=== PATIENT | female | born 1955 | race Caucasian/White ===

== ENCOUNTER 2016-11-08 06:33 | Inpatient (IN) | payer BC ==
[~2016-11-08] VITALS: Ht 165.1 cm; Wt 134.5 kg
[~2016-11-08 06:33] MED LIST: AMIODARONE HCL200 MG PO; CARDIZEM CD,CA240 MG PO; CELECOXIB200 MG PO; COUMADIN5 MG PO; COUMADIN7.5 MG PO; CYANOCOBAL1000 MCG/2 IM; DILTIAZEM 24HR300 MG PO; FLUOXETINE HCL40 MG PO; FUROSEMIDE20 MG PO; GLUCOSAMINE-CH1 EA32 PO; LASIX20 MG PO; LO-DOSE ASPIRIN81 M2 PO; LOPRESSOR50 MG PO; LOVENOX60 MG/0.6 SC; MORPHINE SULFAT15 M1 PO; NYSTATIN15 GM TP; OXYCODONE HCL5 MG PO; PHENTERMINE H37.5 MG PO; PROZAC20 MG PO; SYNTHROID50 MCG PO; TYLENOL EXTRA500 MG PO; WELLBUTRIN XL300 MG PO; XARELTO20 MG PO
[2016-11-08 07:04] VITALS: BP 124/62
[2016-11-08 08:02] LABS: POINT-OF-CARE METER ID UU14174212
[2016-11-08 08:51] LABS: METH RESISTANT S AUREUS PCR NEGATIVE (NEGATIVE)
[2016-11-08 08:58] LABS: PROBE CHECK PASS; SPECIMEN PROCESSING CONTROL PASS
[2016-11-08 12:00] VITALS: BP 130/78
[2016-11-08 16:19] VITALS: BP 129/67
[2016-11-08 19:10] VITALS: BP 131/78
[2016-11-09 02:44] VITALS: BP 121/74
[2016-11-09 06:40] LABS: MCH 31.1 PG (29.0-34.0); MCHC 32.8 G/DL (30.0-36.0); PLATELET COUNT 211 K/uL (156-360); RBC DIS.WIDTH-CV 14.1 % (11.8-14.6); RBC DIS.WIDTH-SD 45.8 % (39-53); RED BLOOD COUNT 3.79 M/uL (3.80-5.20); WHITE BLOOD COUNT 7.2 K/uL (4.1-10.2)
[2016-11-09 07:37] LABS: ANION GAP 7 MEQ/L (2-14); CHLORIDE 102 MEQ/L (99-109); GFR ESTIMATE (CALCULATED) 54 mL/min/; GLUCOSE 110 mg/dL (70-99); MAGNESIUM 1.9 mg/dl (1.3-2.7); POTASSIUM 4.4 MEQ/L (3.7-5.4); SAMPLE HEMOLYSIS CHECK 0; SAMPLE ICTERIC CHECK 0; SAMPLE LIPEMIA CHECK 0; SODIUM 140 MEQ/L (136-147); UREA NITROGEN (BUN) 10 mg/dL (9-23)
[2016-11-09 08:32] VITALS: BP 123/75
[2016-11-09] MEDS ORDERED: HYDROCODON-ACE1 EAC7 PO (08:34)
[2016-11-09 19:20] VITALS: BP 136/60
[2016-11-10 00:15] VITALS: BP 150/60
[2016-11-10 03:00] VITALS: BP 151/83
[2016-11-10 07:05] VITALS: BP 122/77
[2016-11-10 07:50] LABS: HEMATOCRIT 34.4 % (36.0-46.0); MCH 30.2 PG (29.0-34.0); MCHC 31.7 G/DL (30.0-36.0); MCV 95.3 FL (83-99); MEAN PLAT.VOLUME 10.6 uM^3 (9.5-12.4); PLATELET COUNT 188 K/uL (156-360); RBC DIS.WIDTH-CV 14.3 % (11.8-14.6); RBC DIS.WIDTH-SD 49.7 % (39-53); RED BLOOD COUNT 3.61 M/uL (3.80-5.20); WHITE BLOOD COUNT 7.9 K/uL (4.1-10.2)
[2016-11-10 08:13] LABS: ANION GAP 10 MEQ/L (2-14); CHLORIDE 103 MEQ/L (99-109); GFR ESTIMATE (CALCULATED) > 59 mL/min/; GLUCOSE 87 mg/dL (70-99); MAGNESIUM 1.7 mg/dl (1.3-2.7); POTASSIUM 4.2 MEQ/L (3.7-5.4); SAMPLE HEMOLYSIS CHECK 0; SAMPLE ICTERIC CHECK 0; SAMPLE LIPEMIA CHECK 0; SODIUM 139 MEQ/L (136-147); UREA NITROGEN (BUN) 9 mg/dL (9-23)
[2016-11-10 15:16] VITALS: BP 120/75
[2016-11-10 19:42] VITALS: BP 131/66
[2016-11-10 23:19] VITALS: BP 120/62
[2016-11-11 03:32] VITALS: BP 118/65
[2016-11-11 05:36] LABS: HEMATOCRIT 36.2 % (36.0-46.0); MCH 30.4 PG (29.0-34.0); MCV 94.8 FL (83-99); MEAN PLAT.VOLUME 10.1 uM^3 (9.5-12.4); PLATELET COUNT 179 K/uL (156-360); RBC DIS.WIDTH-CV 14.2 % (11.8-14.6); RBC DIS.WIDTH-SD 49.1 % (39-53); RED BLOOD COUNT 3.82 M/uL (3.80-5.20); WHITE BLOOD COUNT 6.7 K/uL (4.1-10.2)
[2016-11-11 06:07] LABS: ANION GAP 8 MEQ/L (2-14); CHLORIDE 105 MEQ/L (99-109); GFR ESTIMATE (CALCULATED) > 59 mL/min/; GLUCOSE 70 mg/dL (70-99); POTASSIUM 4.2 MEQ/L (3.7-5.4); SAMPLE HEMOLYSIS CHECK 0; SAMPLE ICTERIC CHECK 0; SAMPLE LIPEMIA CHECK 0; SODIUM 138 MEQ/L (136-147); UREA NITROGEN (BUN) 9 mg/dL (9-23)
[2016-11-11 08:10] VITALS: BP 131/81
[2016-11-11 11:25] VITALS: BP 129/70
[2016-11-11 16:25] VITALS: BP 119/82
[2016-11-11 20:01] VITALS: BP 112/64
[2016-11-12] VITALS: BP 116/72
[2016-11-12 04:00] VITALS: BP 139/83
[2016-11-12 06:18] LABS: INTER. NORMALIZED RATIO 1.2; PROTHROMBIN TIME 11.8 (9.2-11.2)
[2016-11-12 07:30] VITALS: BP 123/71
[2016-11-12 11:25] VITALS: BP 127/76
== END 2016-11-12 13:15 | disposition home or self-care (01) | DRG 621 ==
LOC: 2SOUTH 06:33 → 2EAST 11:57 → 2SOUTH 13:59 → 2EAST 11-12 13:15
PROVIDERS: Surgery
PROC: 0DB68Z3 Excision of Stomach, Via Natural or Artificial Opening Endoscopic, Vertical (ICD-10-PCS; principal; 2016-11-08)
DX: E66.01 Morbid (severe) obesity due to excess calories (principal); E03.9 Hypothyroidism, unspecified; G47.30 Sleep apnea, unspecified; Z79.82 Long term (current) use of aspirin; Z68.42 Body mass index [BMI] 45.0-49.9, adult
CPT/HCPCS: 80048; 82948; 83735; 84100; 85027; 85610; 87641; J0131; J0330; J0690; J1100; J1170; J1644; J1650; J1815; J2270; J2405; J2710; J2765; J3010; J3480; J7120; Q0169; S0020